=== PATIENT | male | born 1995 | race Caucasian/White ===

== ENCOUNTER 2017-12-31 21:40 | Emergency (ER) | payer BC ==
[~2017-12-31] VITALS: Ht 185.4 cm; Wt 95.0 kg
[2017-12-31 21:43] VITALS: TEMP 36.8; Ht 185.4 cm; Wt 95.0 kg
[2017-12-31] MEDS ORDERED: CEPHALEXIN 500MG HOME PACK 1 EA BTL PO ONE (22:15)
--- NOTE | 2017-12-31 23:00 | DIAGNOSTIC IMAGING REPORT ---
RIGHT FACIAL ULTRASOUND CLINICAL HISTORY: Right anterior cheek mass. COMPARISON STUDY: No previous studies for comparison. FINDINGS: There is an ill-defined hypoechoic collection with mobile debris, within the right anterior cheek measuring 6 x 7 x 8 mm. There is an increase peripheral vascularity. The findings are consistent with an inflammatory process such as a developing abscess. IMPRESSION: 6 x 7 x 8 mm complex hypoechoic collection within the right anterior cheek. The findings are consistent with an inflammatory process such as a developing abscess. Clinical follow-up is recommended Electronically signed by: Casper Dubon M.D. 12/31/2017 10:59 PM Dictated Date/Time: 12/31/2017 10:57 PM
[2017-12-31] MEDS ORDERED: CEPH500C2 PO (23:11)
--- NOTE | 2017-12-31 23:25 | EMERGENCY ROOM VISIT NOTE ---
History First contact with patient: 22:01 Chief Complaint: WOUND INFECTION Stated Complaint: CYST ON RIGHT CHEEK Nursing Triage Summary: patient to ED via triage, states "I have a cyst I wanted to get removed, I didn't want to do it myself" History of Present Illness The patient is a 22 year old male who presents to the Emergency Room with complaints of possible infection to his right cheek for the past few days who is been picking on it. Tetanus is up-to-date. No IV drug abuse. Patient states he has been trying to get the pus out but nothing is really coming out. He is requesting to have this removed. Patient denies fever, chills, nausea, vomiting, dental pain, dental infection, sore throat, cold symptoms. He is tolerating p.o. fluids and food. Review of Systems A 6 system review of systems was completed with positives and pertinent negatives listed in the HPI. Past Medical/Surgical History none Social History Smoking Status: Never Smoker Alcohol Use: occasionally Drug Use: none Occupation Status: student Current/Historical Medications Scheduled Cephalexin Monohydrate (Keflex), 500 MG PO QID Physical Exam Vital Signs Date Time Temp Pulse Resp B/P (MAP) Pulse Ox O2 Delivery O2 Flow Rate FiO2 12/31/17 21:43 36.8 78 20 149/85 96 Room Air Physical Exam VITALS: Vitals are noted on the nurse's note and reviewed by myself. Vital signs stable. GENERAL: Pleasant male, in no acute distress, nondiaphoretic, well-developed well-nourished. SKIN: Capillary reflex less than 2 seconds. Face: Right cheek with 1 cm x 1 cm erythematous area that is nonfluctuant without lymphangitis. No trismus Dental exam: No loose or chipped teeth without signs of infection. No Francisco Javier's angina HEENT: Normocephalic. PERRLA. EOMI. Nares patent. Mucous membranes moist. Neck is supple without nuchal rigidity. HEART: Regular rate and rhythm without murmurs gallops or rubs. LUNGS: Clear to auscultation bilaterally without wheezes, rales or rhonchi. No retractions or accessory muscle use. MUSCULOSKELETAL: No gross musculoskeletal defects. No pedal edema. No calf tenderness. NEURO: Patient was alert and oriented to person place and time. Normal sensation to light and sharp touch. No focal neurological deficits. Medical Decision & Procedures Medications Administered Medications (Trade) Dose Ordered Sig/Kasandra Route Start Time Stop Time Status Last Admin Dose Admin Cephalexin Monohydrate (Keflex 500MG Home Pack) 1 homepack NOW ONCE PO 12/31/17 22:15 12/31/17 22:16 DC 12/31/17 22:15 1 HOMEPACK ED Course Prior records reviewed and summarized as above. Triage Nursing notes reviewed. Additional history obtained from friend. The patient's history was concerning for swelling and redness of the skin. Differential diagnosis: Etiologies such as cellulitis, abscess, MRSA infection, necrotizing fasciitis, dermatitis, drug eruption, as well as others were entertained.. Physical examination: As above ER treatment provided: Keflex On reassessment the patient felt better. Diagnostics interpreted by me: Imaging studies: RIGHT FACIAL ULTRASOUND CLINICAL HISTORY: Right anterior cheek mass. COMPARISON STUDY: No previous studies for comparison. FINDINGS: There is an ill-defined hypoechoic collection with mobile debris, within the right anterior cheek measuring 6 x 7 x 8 mm. There is an increase peripheral vascularity. The findings are consistent with an inflammatory process such as a developing abscess. IMPRESSION: 6 x 7 x 8 mm complex hypoechoic collection within the right anterior cheek. The findings are consistent with an inflammatory process such as a developing abscess. Clinical follow-up is recommended Electronically signed by: Casper Dubon M.D. This appears to be cellulitis with possible developing abscess. Patient had no real fluctuance on exam. This was on his face and with the chance of scarring I did advise the patient to do warm compresses, take the antibiotics and see dermatology for possible I&D if warranted. He was strongly encouraged not to continue to squeeze at the area and pick at the infection. He verbalized understanding this. He is advised to follow-up family care in her dermatology in a few days here in the ER sooner for spreading infection, fevers, drainage, worsening signs or symptoms or as needed. By the evaluation outlined above emergent etiologies such as abscess, necrotizing fasciitis, as well as others were deemed relatively unlikely. The pt informed about the findings as listed above. All questions were answered and pleased with the treatment. Return instructions were outlined and the patient was discharged in stable condition. Outpatient prescription management: keflex Referral: The patient was referred back to primary care physician for follow-up in 2 to 3 days for a recheck of the current condition. The chart was completed utilizing [employer] Speech voice recognition software. Grammatical errors, random word insertions, pronoun errors, and incomplete sentences are an occassional consequence of this system due to software limitations, ambient noise, and hardware issues. Any formal questions or concerns about the content, text, or information contained within the body of this dictation should be directly addressed to the physician assistant professor of mathematics for clarification. Medical Decision As above Medication Reconcilliation Current Medication List: was personally reviewed by me Blood Pressure Screening Patient's blood pressure: Elevated blood pressure Blood pressure disposition: Elevated BP felt to be situational Impression Primary Impression: Facial cellulitis Departure Information Dispostion Home / Self-Care Condition GOOD Prescriptions Cephalexin Monohydrate (KEFLEX) 500 Mg Cap 500 MG PO QID for 9 Days, #36 CAP Prov: Becka Mckinney .SELIN 12/31/17 Forms WORK / SCHOOL INSTRUCTIONS, HOME CARE DOCUMENTATION FORM, IMPORTANT VISIT INFORMATION Patient Instructions Cellulitis - [facility], [facility] Additional Instructions Cephalexin(Keflex) 500mg: Take one pill four times daily for 10 days for your skin infection. All antibiotics can cause diarrhea. If this occurs and you feel worse or it does not resolve in 1-2 days follow up with your doctor or return to the Emergency Department as this could be signs of serious underlying problems. Any medication can cause an allergic reaction, stop the pills immediately and return to the ER for rash, hives, breathing difficulties, or swelling. Ibuprofen(Motrin, Advil) may be used for fever or pain. Use 600mg every six hours as needed. Take with food. Avoid using more than 2400mg in a 24 hour period. Do not use 2400mg per day for more than three consecutive days without physician direction. Prolonged inappropriate use can lead to stomach upset or ulcers. (AND/OR) Acetaminophen(Tylenol) may be used for fever or pain. Use 500mg every six hours as needed. Avoid using more than 200mg in a 24 hour period. Warm compresses to the affected area 4 times daily for 15-20 minutes. Rest and drink plenty of fluids. Continue current medications. Return to the ER for severe pain, persistent fevers, spreading redness, or any worsening of your condition. Follow up with your primary physician within 2-3 days for a recheck of the current condition.
[2017-12-31 23:28] VITALS: BP 122/66; PULSE 50; O2SAT 98
== END 2017-12-31 23:30 | disposition home or self-care (01) ==
LOC: C.EDB 21:41 → C.EDA 23:30
DX: L03.211 Cellulitis of face (principal)